=== PATIENT | female | born 1965 | race Caucasian/White ===

== ENCOUNTER → 2020-05-05 | Day surgery (SDC) | payer OTHER ==
[~2020-05-05] MED LIST: ALLEGRA ALLERG180 MG PO; BASAGLAR K100 UNIT/1 SC; COREG 6.25MG6.25 MG PO; CYCLOBENZAPRINE10 MG PO; DITROPAN5 MG PO; EFFEXOR-XR 75 M75 MG PO; HCTZ25 MG PO; IBUPROFEN400 MG PO; JARDIANCE25 MG PO; LOTENSIN20 MG PO; OZEMPIC1 MG/0.75 SC; PAXIL20 MG PO; PROTONIX 40MG T40 MG PO; SINGULAIR10 MG PO; SYNTHROID25 MCG PO; ZANTAC150 MG PO
[2020-05-05 07:51] LABS: HCT 50.3 % (37.0-47.0); HGB 17.6 g/dl (12.5-16.0); MCH 31.9 pg (25.0-31.0); MCV 91.1 fL (78.0-100.0); MPV 10.1 fL (6.0-9.5); RBC 5.52 M/uL (4.20-5.40); RDW 12.5 % (11.5-14.0); WBC 14.6 K/uL (4.0-10.5)
[2020-05-05 07:58] LABS: HCG (URINE) SCREEN NEGATIVE (NEGATIVE)
[2020-05-05 08:14] LABS: ALBUMIN 3.8 g/dL (3.4-5.0); BILIRUBIN - TOTAL 0.6 mg/dL (0.2-1.0); BUN/CREAT RATIO (CALC) 28.3 RATIO; CREATININE 0.53 mg/dL (0.51-0.95); GLOBULIN (CALCULATION) 3.9 g/dL; POTASSIUM 3.6 mmol/L (3.5-5.1); TOTAL PROTEIN 7.7 g/dL (6.4-8.2)
== END | disposition home or self-care (01) ==
LOC: FAS 07:07
PROVIDERS: Anesthesiology; Surgery
DX: Z12.11 Encounter for screening for malignant neoplasm of colon (principal); K21.9 Gastro-esophageal reflux disease without esophagitis; J45.909 Unspecified asthma, uncomplicated; F17.210 Nicotine dependence, cigarettes, uncomplicated; I10 Essential (primary) hypertension; Z88.8 Allergy status to other drugs, medicaments and biological substances; Z20.822 Contact with and (suspected) exposure to COVID-19; E03.9 Hypothyroidism, unspecified; E11.9 Type 2 diabetes mellitus without complications
CPT/HCPCS: 36415; 80053; 84703; J2704; J7120